=== PATIENT | male | born 1945 | race Caucasian/White ===

== ENCOUNTER 2016-04-27 15:32 | Inpatient (IN) | payer OTHER, BC ==
[2016-04-27 16:21] VITALS: BMI 19.1
--- NOTE | 2016-04-27 17:02 | HP ---
CIWA Score - CIWA Score Nausea/Vomitin Muscle Tremors: 6 Anxiety: 4-Mod. Anxious/Guarded Agitation: 3 Paroxysmal Sweats: 3 Orientation: 0-Oriented Tacttile Disturbances: 1-Very Mild Itch/Numbness Auditory Disturbances: 0-None Visual Disturbances: 0-None Headache: 0-None Present CIWA-Ar Total Score: 20 Admission ROS [facility] - HPI Chief Complaint: I've been increasing my drinking -i,m drinking in mornings now. History of Present Illness: 71 y/o m pt with h/o chronic alcoholism seeking detox . Exam Limitations: No Limitations - Ebola screening Have you traveled outside of the country in the last 21 days: No Have you had contact with anyone from an Ebola affected area: No Have you been sick,other than usual withdrawal symptoms: No Do you have a fever: No - Review of Systems Constitutional: Loss of Appetite, Malaise, Changes in sleep, Weight Stable EENT: reports: Nose Congestion (deviated septum), Dental Problems Cardiac: reports: No Symptoms Reported GI: reports: Nausea, Poor Appetite : reports: No Symptoms Reported Musculoskeletal: reports: No Symptoms Reported Integumentary: reports: No Symptoms Reported Neuro: reports: Headache, Tremors Endocrine: reports: No Symptoms Reported Hematology: reports: No Symptoms Reported Psychiatric: reports: Agitated, Depressed Other Systems: Reviewed and Negative Patient History - Patient Medical History Hx Anemia: No Hx Asthma: No Hx Chronic Obstructive Pulmonary Disease (COPD): No Hx Cancer: No Hx Cardiac Disorders: No Hx Congestive Heart Failure: No Hx Hypertension: No Hx Hypercholesterolemia: No Hx Pacemaker: No HX Cerebrovascular Accident: No Hx Seizures: No Hx Dementia: No Hx Diabetes: No Hx Gastrointestinal Disorders: No Hx Liver Disease: No Hx Genitourinary Disorders: No Hx Sexually Transmitted Disorders: No Hx Renal Disease (ESRD): No Hx Thyroid Disease: No Hx Human Immunodeficiency Virus (HIV): No Hx Hepatitis C: No 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[facility] ) Hx Suicide Attempt: No Hx Bipolar Disorder: No Hx Schizophrenia: No - Patient Surgical History Past Surgical History: No - PPD History Documented Results: Negative w/o proof PPD to be Administered?: Yes - Reproductive History Patient is a Female of Child Bearing Age (11 -55 yrs old): No - Smoking Cessation Smoking history: Current every day smoker Have you smoked in the past 12 months: Yes Aproximately how many cigarettes per day: 20 Cigars Per Day: 0 Hx Chewing Tobacco Use: No Initiated information on smoking cessation: Yes 'Breaking Loose' booklet given: 04/27/16 - Substance & Tx. History Hx Alcohol Use: Yes Hx Substance Use: No Substance Use Type: Alcohol Hx Substance Use Treatment: Yes - Substances Abused Alcohol Route: Oral Frequency: Daily Amount used: vodka 1pt /d Age of first use: 17 Date of Last Use: 04/27/16 Family Disease History - Family Disease History Family Disease History: Diabetes: Father Admission Physical Exam [facility] - Vital Signs Vital Signs: Vital Signs - 24 hr 04/27/16 16:17 Temperature 98.9 F Pulse Rate 90 Respiratory 20 Rate Blood Pressure 162/85 71 y/o m pt aox3 , tremulous , irritable , but cooperative with exam - Physical General Appearance: Yes: Appropriately Dressed, Thin, Tremorous, Irritable, Anxious HEENTM: Yes: EOMI, Hearing grossly Normal, Normal Voice, JOSEPHINE, Nasal Congestion Respiratory: Yes: Chest Non-Tender, Lungs Clear, Normal Breath Sounds, No Respiratory Distress Neck: Yes: Supple, Trachea in good position Breast: Yes: Within Normal Limits Cardiology: Yes: Regular Rhythm, Regular Rate, S1, S2 Abdominal: Yes: Non Tender, Flat, Soft, Increased Bowel Sounds Genitourinary: Yes: Within Normal Limits Back: Yes: Decreased Range of Motion Musculoskeletal: Yes: Back pain Extremities: Yes: Tremors 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 NML intact, Fully Oriented, Alert, Normal Response Integumentary: Yes: Moist Lymphatic: Yes: Within Normal Limits - Diagnostic (1) Alcohol dependence with uncomplicated withdrawal Current Visit: Yes Status: Chronic (2) Nasal congestion Current Visit: Yes Status: Chronic (3) Nicotine dependence Current Visit: Yes Status: Chronic Qualifiers: Nicotine product type: cigarettes Substance use status: uncomplicated Qualified Code(s): F17.210 - Nicotine dependence, cigarettes, uncomplicated Cleared for Admission [facility] - Detox or Rehab [facility] Level of Care: Medically Managed Detox Regimen/Protocol: Librium [facility] Breath Alcohol Content Breath Alcohol Content: 0.074 Urine Drug Screen - Results Drug Screen Negative: Yes
[2016-04-27] MEDS ORDERED: IBUPROFEN 400 MG TABLET (FP) PO PRN (17:16)
[2016-04-27] MEDS ORDERED: NICOTINE POLACRILEX 4 MG GUM BUC PRN (17:16)
[2016-04-27] MEDS ORDERED: hydrOXYzine PAMOATE 25 MG CAPSULE (FP) PO PRN (17:16)
[2016-04-27] MEDS ORDERED: ACETAMINOPHEN 325 MG TABLET (FP) PO PRN (17:16)
[2016-04-27] MEDS ORDERED: chlordiazePOXIDE HCL 25 MG CAPSULE PO PRN (17:16)
[2016-04-27] MEDS ORDERED: guaiFENesin/D-METHORPHAN HB 10 ML UNIT-DOSE CUPS PO PRN (17:16)
[2016-04-27] MEDS ORDERED: MAGNESIUM HYDROX 2400MG/30ML ORAL SUSPENSION 30 ML CUP PO PRN (17:16)
[2016-04-27] MEDS ORDERED: MAG HYDROX/AL HYDROX/SIMETH 30 ML UNIT-DOSE CUP PO PRN (17:16)
[2016-04-27] MEDS ORDERED: P-EPHED 60MG/TRIPROLIDI 2.5MG TABLET PO PRN (17:16)
[2016-04-27] MEDS ORDERED: LOPERAMIDE HCL 2 MG CAPSULE PO PRN (17:16)
[2016-04-27] MEDS ORDERED: MAGNESIUM CITRATE 300 ML BOTTLE PO PRN (17:16)
[2016-04-27] MEDS ORDERED: MENTHOL/PHENOL 1 EACH UD MM PRN (17:16)
[2016-04-27] MEDS ORDERED: chlordiazePOXIDE HCL 25 MG CAPSULE PO ONE (18:15)
--- NOTE | 2016-04-27 19:03 | PN ---
S Progress Note Note: 1816 PM RECEIVED PHARMACIST CALL PATIENT HAS LUNG ISSUE SHOULD NOT RECEIVE PNEUMOC 13 PNEUMOVAC ORDER CONTINUE DETOX
[2016-04-27] MEDS ORDERED: cloNIDine HCL 0.1 MG TABLET PO PRN (19:32)
[2016-04-27] MEDS ORDERED: CYCLOBENZAPRINE HCL 10 MG TABLET (FP) PO PRN (19:34)
[2016-04-27] MEDS: THIAMINE HCL 100 MG TABLET (FP) PO SCH (22:05)
[2016-04-27] MEDS: chlordiazePOXIDE HCL 25 MG CAPSULE PO SCH (22:05)
[2016-04-27] MEDS: diphenhydrAMINE HCL 50 MG CAPSULE PO PRN (22:06)
[2016-04-27 23:13] LABS: URINE APPEARANCE CLEAR; URINE BILIRUBIN NEGATIVE (NEGATIVE); URINE BLOOD NEGATIVE (NEGATIVE); URINE COLOR YELLOW; URINE GLUCOSE (UA) NEGATIVE (NEGATIVE); URINE KETONE TRACE (NEGATIVE); URINE LEUK ESTERASE NEGATIVE (NEGATIVE); URINE NITRITE NEGATIVE (NEGATIVE); URINE UROBILINOGEN 2.0 E.U/dl E.U./dl (0.2-1.0)
[2016-04-27 23:23] LABS: URINE PROTEIN 1+ (NEGATIVE)
[2016-04-27 23:45] LABS: URINE MUCUS FEW; URINE RBC 3 /hpf (0-3); URINE WBC 1 /hpf (3-5)
[2016-04-28] MEDS: chlordiazePOXIDE HCL 25 MG CAPSULE PO SCH ×4 (05:19→22:26)
[2016-04-28] MEDS: PRENATAL VITAMINS W/ FOLIC ACID TABLET (FP) PO SCH (10:30)
[2016-04-28] MEDS: NICOTINE 21 MG/24 HOURS TOPICAL PATCH TD SCH (10:30)
[2016-04-28 10:35] LABS: MCH 33.5 pg (25.7-33.7); MEAN CELL VOLUME 98.5 fl (80-96); MEAN PLT VOLUME 9.5 fl (7.5-11.1); PLATELET COUNT 83 K/MM3 (134-434); RDW 14.8 % (11.9-15.9); WHITE BLOOD COUNT 6.5 K/mm3 (4.0-10.0)
[2016-04-28 10:47] LABS: ANION GAP 6 (8-16); CALCIUM 8.5 mg/dL (8.5-10.1); CO2 33 mmol/L (21-32); GLUCOSE,RANDOM 91 mg/dL (74-106); SGOT/AST 36 U/L (15-37); SGPT/ALT 33 U/L (12-78)
[2016-04-28 10:48] LABS: ALK PHOS 92 U/L (45-117); BILIRUBIN,TOTAL 1.5 mg/dL (0.2-1.0); CREATININE 0.6 mg/dL (0.7-1.3); TOT PROT 5.5 g/dl (6.4-8.2)
--- NOTE | 2016-04-28 11:22 | PN ---
[facility] CIWA - CIWA Score Nausea/Vomitin-No Nausea/No Vomiting Muscle Tremors: 4-Moderate,w/Arms Extend Anxiety: 3 Agitation: 3 Paroxysmal Sweats: 3 Orientation: 1-Uncertain about Date Tacttile Disturbances: 1-Very Mild Itch/Numbness Auditory Disturbances: 0-None Visual Disturbances: 0-None Headache: 0-None Present CIWA-Ar Total Score: 15 S Progress Note (SOAP) Subjective: ANXIETY,TREMORS,SWEATING,INTERRUPTED SLEEP,RESTLESS. Objective: 04/28/16 11:23 Vital Signs - 8 hr 04/28/16 04/28/16 04/28/16 03:30 06:11 10:01 Temperature 96.8 F L 96.4 F L Pulse Rate 81 88 Respiratory 18 18 20 Rate Blood Pressure 129/81 117/76 Laboratory Last Values WBC 6.5 K/mm3 (4.0-10.0) 04/28/16 07:50 RBC 3.96 M/mm3 (4.00-5.60) L 04/28/16 07:50 Hgb 13.3 GM/dL (11.7-16.9) 04/28/16 07:50 Hct 39.0 % (35.4-49) 04/28/16 07:50 MCV 98.5 fl (80-96) H 04/28/16 07:50 MCHC 34.0 g/dl (32.0-35.9) 04/28/16 07:50 RDW 14.8 % (11.9-15.9) 04/28/16 07:50 Plt Count 83 K/MM3 (134-434) L 04/28/16 07:50 MPV 9.5 fl (7.5-11.1) 04/28/16 07:50 Sodium 142 mmol/L (136-145) 04/28/16 07:50 Potassium 3.6 mmol/L (3.5-5.1) 04/28/16 07:50 Chloride 103 mmol/L (98-107) 04/28/16 07:50 Carbon Dioxide 33 mmol/L (21-32) H 04/28/16 07:50 Anion Gap 6 (8-16) L 04/28/16 07:50 BUN 11 mg/dL (7-18) 04/28/16 07:50 Creatinine 0.6 mg/dL (0.7-1.3) L 04/28/16 07:50 Creat Clearance w eGFR > 60 (>60) 04/28/16 07:50 Random Glucose 91 mg/dL (74-106) 04/28/16 07:50 Calcium 8.5 mg/dL (8.5-10.1) 04/28/16 07:50 Total Bilirubin 1.5 mg/dL (0.2-1.0) H 04/28/16 07:50 AST 36 U/L (15-37) 04/28/16 07:50 ALT 33 U/L (12-78) 04/28/16 07:50 Alkaline Phosphatase 92 U/L (45-117) 04/28/16 07:50 Total Protein 5.5 g/dl (6.4-8.2) L 04/28/16 07:50 Albumin 3.0 g/dl (3.4-5.0) L 04/28/16 07:50 Urine Color Yellow 04/27/16 20:00 Urine Appearance Clear 04/27/16 20:00 Urine pH 5.0 (5.0-8.0) 04/27/16 20:00 Ur Specific [place] 1.024 (1.001-1.035) 04/27/16 20:00 Urine Protein 1+ (NEGATIVE) H 04/27/16 20:00 Urine Glucose (UA) Negative (NEGATIVE) 04/27/16 20:00 Urine Ketones Trace (NEGATIVE) H 04/27/16 20:00 Urine Blood Negative (NEGATIVE) 04/27/16 20:00 Urine Nitrite Negative (NEGATIVE) 04/27/16 20:00 Urine Bilirubin Negative (NEGATIVE) 04/27/16 20:00 Urine Urobilinogen 2.0 e.u/dl E.U./dl (0.2-1.0) 04/27/16 20:00 Ur Leukocyte Esterase Negative (NEGATIVE) 04/27/16 20:00 Urine RBC 3 /hpf (0-3) 04/27/16 20:00 Urine WBC 1 /hpf (3-5) 04/27/16 20:00 Urine Mucus Few 04/27/16 20:00 LABS NOTED Assessment: 04/28/16 11:26 WITHDRAWAL SX. Plan: CONTINUE DETOX
[2016-04-28] MEDS ORDERED: PNEUMOCOCCAL 23 VACCINE 0.5 ML VIAL IM ONE (12:00)
[2016-04-28] MEDS ORDERED: PNEUMOC 13-VAL CONJ-DIP CRM/PF 0.5 ML DISP.SYRIN IM ONE (12:00)
--- NOTE | 2016-04-28 13:41 | CONSULT ---
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 Substance Abuse History: - Smoking Cessation. Smoking history: Current every day smoker. Have you smoked in the past 12 months: Yes. Aproximately how many cigarettes per day: 20. Cigars Per Day: 0. Hx Chewing Tobacco Use: No. Initiated information on smoking cessation: Yes. 'Breaking Loose' booklet given : 04/27/16. - Substance & Tx. History. Hx Alcohol Use: Yes. Hx Substance Use : No. Substance Use Type: Alcohol. Hx Substance Use Treatment: Yes. - Substances Abused. Alcohol. Route: Oral. Frequency: Daily. Amount used: vodka 1pt /d. Age of first use: 17. Date of Last Use: 04/27/16. Confirmed by patient. Medical History: patient denies medical problems.He endorses good general health. Psychiatric History: Patient admits to one psychiatric hospitalization ([facility] ) in 2015.Circumstances of admission :depressed mood and suicidal ideation (girlfriend called EMS).Discharged after 17 days.Mr Fox did not follow with his [facility] careplan.He is currently on no psychotropic medications.No contact with mental health care providers.Patient denies history of suicide attempts. 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 Additional Comment: Drug Screen Negative: Yes Mental Status Exam - Mental Status Exam Alert and Oriented to: Time, Place, Person Cognitive Function: Grossly Intact Patient Appearance: Well Groomed Mood: Withdrawn Affect: Appropriate, Normal Range Patient Behavior: Sedated, Fatigued, Cooperative Speech Pattern: Clear Voice Loudness: Normal Thought Process: Goal Oriented Thought Disorder: Not Present Hallucinations: Denies Suicidal Ideation: Denies Homicidal Ideation: Denies Insight/Judgement: Fair Sleep: Well Appetite: Good Muscle strength/Tone: Normal Gait/Station: Normal Psychiatric Findings - Problem List ([place] 1, 2,3) (1) Alcohol dependence with uncomplicated withdrawal Current Visit: Yes Status: Acute (2) Nicotine dependence Current Visit: Yes Status: Acute Qualifiers: Nicotine product type: cigarettes Substance use status: uncomplicated Qualified Code(s): F17.210 - Nicotine dependence, cigarettes, uncomplicated - Initial Treatment Plan Initial Treatment Plan: Psychoeducation.Detoxification.Observation.
[2016-04-28] MEDS: THIAMINE HCL 100 MG TABLET (FP) PO SCH (22:25)
[2016-04-28] MEDS: diphenhydrAMINE HCL 50 MG CAPSULE PO PRN (22:25)
[2016-04-29] MEDS: chlordiazePOXIDE HCL 25 MG CAPSULE PO SCH ×3 (05:29→17:47)
[2016-04-29] MEDS: NICOTINE 21 MG/24 HOURS TOPICAL PATCH TD SCH (10:28)
[2016-04-29] MEDS: PRENATAL VITAMINS W/ FOLIC ACID TABLET (FP) PO SCH (10:28)
--- NOTE | 2016-04-29 14:56 | PN ---
S CIWA - CIWA Score Nausea/Vomitin Muscle Tremors: 3 Anxiety: 3 Agitation: 2 Paroxysmal Sweats: 3 Orientation: 0-Oriented Tacttile Disturbances: 2-Mild Itch/Numbness/Burn Auditory Disturbances: 1-Very Mild Visual Disturbances: 0-None Headache: 0-None Present CIWA-Ar Total Score: 16 BHS Progress Note (SOAP) Subjective: Tremors, Sweating, Nausea, Anxious, Diarrhea. Objective: 04/29/16 14:53 Vital Signs Temperature 97.0 F L 04/29/16 09:28 Pulse Rate 78 04/29/16 09:28 Respiratory Rate 18 04/29/16 09:28 Blood Pressure 109/66 04/29/16 09:28 O2 Sat by Pulse Oximetry (%) Laboratory Last Values WBC 6.5 K/mm3 (4.0-10.0) 04/28/16 07:50 RBC 3.96 M/mm3 (4.00-5.60) L 04/28/16 07:50 Hgb 13.3 GM/dL (11.7-16.9) 04/28/16 07:50 Hct 39.0 % (35.4-49) 04/28/16 07:50 MCV 98.5 fl (80-96) H 04/28/16 07:50 MCHC 34.0 g/dl (32.0-35.9) 04/28/16 07:50 RDW 14.8 % (11.9-15.9) 04/28/16 07:50 Plt Count 83 K/MM3 (134-434) L 04/28/16 07:50 MPV 9.5 fl (7.5-11.1) 04/28/16 07:50 Sodium 142 mmol/L (136-145) 04/28/16 07:50 Potassium 3.6 mmol/L (3.5-5.1) 04/28/16 07:50 Chloride 103 mmol/L (98-107) 04/28/16 07:50 Carbon Dioxide 33 mmol/L (21-32) H 04/28/16 07:50 Anion Gap 6 (8-16) L 04/28/16 07:50 BUN 11 mg/dL (7-18) 04/28/16 07:50 Creatinine 0.6 mg/dL (0.7-1.3) L 04/28/16 07:50 Creat Clearance w eGFR > 60 (>60) 04/28/16 07:50 Random Glucose 91 mg/dL (74-106) 04/28/16 07:50 Calcium 8.5 mg/dL (8.5-10.1) 04/28/16 07:50 Total Bilirubin 1.5 mg/dL (0.2-1.0) H 04/28/16 07:50 AST 36 U/L (15-37) 04/28/16 07:50 ALT 33 U/L (12-78) 04/28/16 07:50 Alkaline Phosphatase 92 U/L (45-117) 04/28/16 07:50 Total Protein 5.5 g/dl (6.4-8.2) L 04/28/16 07:50 Albumin 3.0 g/dl (3.4-5.0) L 04/28/16 07:50 Urine Color Yellow 04/27/16 20:00 Urine Appearance Clear 04/27/16 20:00 Urine pH 5.0 (5.0-8.0) 04/27/16 20:00 Ur Specific [place] 1.024 (1.001-1.035) 04/27/16 20:00 Urine Protein 1+ (NEGATIVE) H 04/27/16 20:00 Urine Glucose (UA) Negative (NEGATIVE) 04/27/16 20:00 Urine Ketones Trace (NEGATIVE) H 04/27/16 20:00 Urine Blood Negative (NEGATIVE) 04/27/16 20:00 Urine Nitrite Negative (NEGATIVE) 04/27/16 20:00 Urine Bilirubin Negative (NEGATIVE) 04/27/16 20:00 Urine Urobilinogen 2.0 e.u/dl E.U./dl (0.2-1.0) 04/27/16 20:00 Ur Leukocyte Esterase Negative (NEGATIVE) 04/27/16 20:00 Urine RBC 3 /hpf (0-3) 04/27/16 20:00 Urine WBC 1 /hpf (3-5) 04/27/16 20:00 Urine Mucus Few 04/27/16 20:00 RPR Titer Nonreactive (NONREACTIVE) 04/28/16 07:50 LABS NOTED. Assessment: 04/29/16 14:54 WITHDRAWAL SYMPTOMS. Plan: CONTINUE DETOX. ADVISED PT. TO FOLLOW-UP WITH PMD / REHAB MEDICAL PROVIDER AFTER DISCHARGE FOR GENERAL MEDICAL ASSESSMENT AND REGARDING ABNORMAL LAB VALUES.
[2016-04-29] MEDS: THIAMINE HCL 100 MG TABLET (FP) PO SCH (22:15)
[2016-04-29] MEDS: chlordiazePOXIDE 5 MG CAPSULE PO SCH (22:15)
[2016-04-29] MEDS: diphenhydrAMINE HCL 50 MG CAPSULE PO PRN (22:16)
[2016-04-30] MEDS: chlordiazePOXIDE 5 MG CAPSULE PO SCH ×3 (05:40→17:48)
[2016-04-30] MEDS: NICOTINE 21 MG/24 HOURS TOPICAL PATCH TD SCH (10:28)
[2016-04-30] MEDS: PRENATAL VITAMINS W/ FOLIC ACID TABLET (FP) PO SCH (10:28)
--- NOTE | 2016-04-30 14:28 | PN ---
[facility] Progress Note (SOAP) Subjective: SWEATING,INTERRUPTED SLEEP,RESTLESS,TREMORS,ANXIETY Objective: 04/30/16 14:27 Vital Signs - 8 hr 04/30/16 10:47 Temperature 96.8 F L Pulse Rate 74 Respiratory 16 Rate Blood Pressure 96/69 Laboratory Tests 04/27/16 04/28/16 04/28/16 20:00 07:50 07:50 WBC 6.5 RBC 3.96 L Hgb 13.3 Hct 39.0 MCV 98.5 H MCHC 34.0 RDW 14.8 Plt Count 83 L MPV 9.5 Sodium 142 Potassium 3.6 Chloride 103 Carbon Dioxide 33 H Anion Gap 6 L BUN 11 Creatinine 0.6 L Creat Clearance w eGFR > 60 Random Glucose 91 Calcium 8.5 Total Bilirubin 1.5 H AST 36 ALT 33 Alkaline Phosphatase 92 Total Protein 5.5 L Albumin 3.0 L Urine Color Yellow Urine Appearance Clear Urine pH 5.0 Ur Specific [place] 1.024 Urine Protein 1+ H Urine Glucose (UA) Negative Urine Ketones Trace H Urine Blood Negative Urine Nitrite Negative Urine Bilirubin Negative Urine Urobilinogen 2.0 e.u/dl Ur Leukocyte Esterase Negative Urine RBC 3 Urine WBC 1 Urine Mucus Few RPR Titer 04/28/16 07:50 WBC RBC Hgb Hct MCV MCHC RDW Plt Count MPV Sodium Potassium Chloride Carbon Dioxide Anion Gap BUN Creatinine Creat Clearance w eGFR Random Glucose Calcium Total Bilirubin AST ALT Alkaline Phosphatase Total Protein Albumin Urine Color Urine Appearance Urine pH Ur Specific [place] Urine Protein Urine Glucose (UA) Urine Ketones Urine Blood Urine Nitrite Urine Bilirubin Urine Urobilinogen Ur Leukocyte Esterase Urine RBC Urine WBC Urine Mucus RPR Titer Nonreactive LABS NOTED Assessment: 04/30/16 14:27 WITHDRAWAL SX. Plan: CONTINUE DETOX
[2016-04-30] MEDS: chlordiazePOXIDE HCL 10 MG CAPSULE PO SCH (22:26)
[2016-04-30] MEDS: THIAMINE HCL 100 MG TABLET (FP) PO SCH (22:26)
[2016-04-30] MEDS: diphenhydrAMINE HCL 50 MG CAPSULE PO PRN (22:26)
[2016-05-01] MEDS: chlordiazePOXIDE HCL 10 MG CAPSULE PO SCH (05:19)
[2016-05-01 06:45] VITALS: BP 93/62; PULSE 67; TEMP 96.4
--- NOTE | 2016-05-01 10:08 | DS ---
[facility] Detox Discharge Summary Admission Date: 04/27/16 Discharge Date: 05/01/16 - History Present History: Alcohol Dependence Pertinent Past History: PTSD - Physical Exam Results Vital Signs: Vital Signs Temperature 96.4 F L 05/01/16 06:45 Pulse Rate 67 05/01/16 06:45 Respiratory Rate 16 05/01/16 06:45 Blood Pressure 93/62 05/01/16 06:45 O2 Sat by Pulse Oximetry (%) Pertinent Admission Physical Exam Findings: WITHDRAWAL SX. Laboratory Last Values WBC 6.5 K/mm3 (4.0-10.0) 04/28/16 07:50 RBC 3.96 M/mm3 (4.00-5.60) L 04/28/16 07:50 Hgb 13.3 GM/dL (11.7-16.9) 04/28/16 07:50 Hct 39.0 % (35.4-49) 04/28/16 07:50 MCV 98.5 fl (80-96) H 04/28/16 07:50 MCHC 34.0 g/dl (32.0-35.9) 04/28/16 07:50 RDW 14.8 % (11.9-15.9) 04/28/16 07:50 Plt Count 83 K/MM3 (134-434) L 04/28/16 07:50 MPV 9.5 fl (7.5-11.1) 04/28/16 07:50 Sodium 142 mmol/L (136-145) 04/28/16 07:50 Potassium 3.6 mmol/L (3.5-5.1) 04/28/16 07:50 Chloride 103 mmol/L (98-107) 04/28/16 07:50 Carbon Dioxide 33 mmol/L (21-32) H 04/28/16 07:50 Anion Gap 6 (8-16) L 04/28/16 07:50 BUN 11 mg/dL (7-18) 04/28/16 07:50 Creatinine 0.6 mg/dL (0.7-1.3) L 04/28/16 07:50 Creat Clearance w eGFR > 60 (>60) 04/28/16 07:50 Random Glucose 91 mg/dL (74-106) 04/28/16 07:50 Calcium 8.5 mg/dL (8.5-10.1) 04/28/16 07:50 Total Bilirubin 1.5 mg/dL (0.2-1.0) H 04/28/16 07:50 AST 36 U/L (15-37) 04/28/16 07:50 ALT 33 U/L (12-78) 04/28/16 07:50 Alkaline Phosphatase 92 U/L (45-117) 04/28/16 07:50 Total Protein 5.5 g/dl (6.4-8.2) L 04/28/16 07:50 Albumin 3.0 g/dl (3.4-5.0) L 04/28/16 07:50 Urine Color Yellow 04/27/16 20:00 Urine Appearance Clear 04/27/16 20:00 Urine pH 5.0 (5.0-8.0) 04/27/16 20:00 Ur Specific [place] 1.024 (1.001-1.035) 04/27/16 20:00 Urine Protein 1+ (NEGATIVE) H 04/27/16 20:00 Urine Glucose (UA) Negative (NEGATIVE) 04/27/16 20:00 Urine Ketones Trace (NEGATIVE) H 04/27/16 20:00 Urine Blood Negative (NEGATIVE) 04/27/16 20:00 Urine Nitrite Negative (NEGATIVE) 04/27/16 20:00 Urine Bilirubin Negative (NEGATIVE) 04/27/16 20:00 Urine Urobilinogen 2.0 e.u/dl E.U./dl (0.2-1.0) 04/27/16 20:00 Ur Leukocyte Esterase Negative (NEGATIVE) 04/27/16 20:00 Urine RBC 3 /hpf (0-3) 04/27/16 20:00 Urine WBC 1 /hpf (3-5) 04/27/16 20:00 Urine Mucus Few 04/27/16 20:00 RPR Titer Nonreactive (NONREACTIVE) 04/28/16 07:50 LABS NOTED - Treatment Hospital Course: Detox Protocol Followed, Detoxed Safely, Responded well, Discharged Condition Good, Rehab Referral Accepted - Medication Discharge Medications: Ambulatory Orders NK [No Known Home Medication] 05/01/16 - Diagnosis (1) Alcohol dependence with uncomplicated withdrawal Current Visit: Yes Status: Acute (2) Nicotine dependence Current Visit: Yes Status: Acute Qualifiers: Nicotine product type: cigarettes Substance use status: uncomplicated Qualified Code(s): F17.210 - Nicotine dependence, cigarettes, uncomplicated - AMA Did Patient Leave Against Medical Advice: No
== END 2016-05-01 09:40 | disposition home or self-care (01) | DRG 897 ==
LOC: YASAS 15:32 → Y3N 18:06
PROVIDERS: ADMIT Internal Medicine; ATTEND Internal Medicine
PROC: HZ2ZZZZ Detoxification Services for Substance Abuse Treatment (ICD-10-PCS; principal; 2016-04-27)
DX: F19.230 Other psychoactive substance dependence with withdrawal, uncomplicated (principal); F10.230 Alcohol dependence with withdrawal, uncomplicated; F17.210 Nicotine dependence, cigarettes, uncomplicated; F43.10 Post-traumatic stress disorder, unspecified; R09.81 Nasal congestion
CPT/HCPCS: 36415; 80053; 81003; 81015; 85027; 86593; 93005; 93010

== ENCOUNTER 2021-03-04 00:08 | Emergency (ER) | payer OTHER ==
[2021-03-04 01:01] VITALS: TEMP 98.2; BMI 18.2
[2021-03-04 01:35] LABS: BASO % 2.6 % (0-2.0); EOS % 9.8 % (0-4.5); HEMATOCRIT 40.2 % (35.4-49); HEMOGLOBIN 13.7 GM/dL (11.7-16.9); LYMPH % 22.9 % (8-40); MCH 31.2 pg (25.7-33.7); MCHC 34.1 g/dl (32.0-35.9); MEAN CELL VOLUME 91.4 fl (80-96); MEAN PLT VOLUME 9.3 fl (7.5-11.1); MONO % 7.1 % (3.8-10.2); NEUT % 57.6 % (42.8-82.8); PLATELET COUNT 144 10^3/uL (134-434); RDW 13.9 % (11.9-15.9); WHITE BLOOD COUNT 8.3 K/mm3 (4.0-10.0)
[2021-03-04 01:41] LABS: INR 0.97 (0.83-1.09); PROTHROMBIN TIME (PATIENT) 11.3 SEC (9.7-13.0)
[2021-03-04 01:44] LABS: ACTIVATED PTT 31.6 SECONDS (25.2-36.5)
[2021-03-04 01:55] LABS: CHLORIDE 105 mmol/L (98-107); SODIUM 139 mmol/L (136-145)
[2021-03-04 01:57] LABS: ALBUMIN 3.4 g/dl (3.4-5.0); ANION GAP 4 MMOL/L (8-16); CO2 30 mmol/L (21-32); GLUCOSE,RANDOM 96 mg/dL (74-106)
[2021-03-04 01:59] LABS: MAGNESIUM 2.2 mg/dL (1.8-2.4)
[2021-03-04 02:01] LABS: CREATININE 1.1 mg/dL (0.55-1.3); SGOT/AST 15 U/L (15-37); SGPT/ALT 14 U/L (13-61)
[2021-03-04 02:03] LABS: ALK PHOS 95 U/L (45-117); BILIRUBIN,TOTAL 0.3 mg/dL (0.2-1)
[2021-03-04 03:47] VITALS: BP 120/76; PULSE 50
== END 2021-03-04 03:48 | disposition home or self-care (01) ==
LOC: JER 00:08
DX: R79.9 Abnormal finding of blood chemistry, unspecified (principal)
CPT/HCPCS: 36415; 71045-TC-FY; 80053; 83735; 84443; 84484; 85025; 85610; 85730; 93005; 93010; 99284-25; C9803; U0003; U0005